=== PATIENT | male | born 1985 | race Two or more races ===

== ENCOUNTER 2017-03-13 22:45 | Emergency (ER) | payer SELFPAY ==
[2017-03-13 22:54] VITALS: BP 115/62; PULSE 93; RESP 18; TEMP 95; O2SAT 99
--- NOTE | 2017-03-13 22:56 | ED PDOC ---
HPI: Psych/Substance Abuse Time Seen by Provider: 03/13/17 22:56 Chief Complaint (Nursing): Alcohol Ingestion Chief Complaint (Provider): etoh History Per: Patient, EMS Additional Complaint(s): 31-year-old male presents to emergency department intoxicated. He was found lying on the sidewalk. Patient offers no acute complaints. He admits to drinking today, denies any fall or injuries. Patient states he lives in [facility] and is going to try to call his friend to come to ED to pick him up. 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 Past Medical History Reviewed: Historical Data, Nursing Documentation, Vital Signs Vital Signs: Last Vital Signs Temp 95 F L 03/13/17 22:52 Pulse 93 H 03/13/17 22:52 Resp 18 03/13/17 22:52 BP 115/62 03/13/17 22:52 Pulse Ox 99 03/13/17 22:52 - Medical History PMH: No Chronic Diseases - Surgical History Surgical History: No Surg Hx - Family History Family History: States: No Known Family Hx - Living Arrangements Living Arrangements: With Friends/Others - Social History Current smoker - smoking cessation education provided: No Alcohol: Social Drugs: Denies - Allergies Allergies/Adverse Reactions: Allergies Allergy/AdvReac Type Severity Reaction Status Date / Time No Known Allergies Allergy Verified 03/13/17 22:52 Review of Systems ROS Statement: Except As Marked, All Systems Reviewed And Found Negative Psych: Positive for: Other (etoh) Physical Exam - Reviewed Nursing Documentation Reviewed: Yes Vital Signs Reviewed: Yes - Physical Exam Appears: Positive for: Well, Non-toxic, No Acute Distress Skin: Negative for: Rash Eye Exam: Positive for: Normal appearance Cardiovascular/Chest: Positive for: Regular Rate, Rhythm Respiratory: Positive for: Normal Breath Sounds Neurologic/Psych: Positive for: Alert, Oriented, Gait (steady) - ECG O2 Sat by Pulse Oximetry: 99 Pulse Ox Interpretation: Normal Medical Decision Making Medical Decision Makin-year-old intoxicated male. 11:15 pm - Patient is awake and alert, answers questions appropriate, has steady gait. Patient states she will try to call his friend to come and pick him up from ED. 11:35 pm: patient is now asleep, will continue to monitor patient pending sobriety. 1:44 - alcohol level is 256. Patient is asleep, vital signs are stable. He will continue to be monitored. 3:30 - patient is more arousable, walked to bathroom with steady gait 4:00 - patient is asking to leave, he is alert and awake, has steady gait, stable for discharge Disposition - Clinical Impression Clinical Impression: Alcohol intoxication - Patient ED Disposition Is Patient to be Admitted: No - Disposition Referrals: [facility] [Outside] Disposition: Routine/Home Disposition Time: 04:05 Condition: STABLE Instructions: Alcohol Intoxication (ED) Forms: [employer] (Vietnamese)
== END 2017-03-14 04:10 | disposition home or self-care (01) ==
LOC: H.ER 22:45
DX: F10.129 Alcohol abuse with intoxication, unspecified (principal)
CPT/HCPCS: 82948; 99281; G0480